=== PATIENT | male | born 1945 | race Caucasian/White ===

== ENCOUNTER 2020-10-25 09:48 | Day surgery (SDC) | payer MEDICARE, OTHER ==
--- NOTE | 2020-10-18 14:27 | HP ---
DATE OF SURGERY: 10/25/2020 HISTORY OF PRESENT ILLNESS: The patient presents with complaints of epigastric pain and history of colon polyps. Denies colon symptoms at this time. Reports epigastric pain is increasing. PAST MEDICAL HISTORY: Coronary artery disease, hyperlipidemia, reflux. PAST SURGICAL HISTORY: Open heart surgery 2004. Pacemaker. FAMILY HISTORY: None reported. SOCIAL HISTORY: Chewing tobacco, limited alcohol. MEDICATIONS: Aspirin, diltiazem, omeprazole, multivitamin, Pravastatin, Xarelto. ALLERGIES: NKDA. REVIEW OF SYSTEMS: CONSTITUTIONAL: Denies fever or chills. CHEST: Denies shortness of breath. HEART: Denies chest pain. ABDOMEN: Reports epigastric pain. Denies nausea, vomiting, diarrhea, constipation or rectal bleeding. INTEGUMENTARY: Negative. PHYSICAL EXAMINATION: GENERAL: No acute distress. CHEST: Nonlabored. No shortness of breath. HEART: Regular rate and rhythm. ABDOMEN: Soft, nontender to palpation. EXTREMITIES: No edema. NEURO: Alert. PSYCH: Appropriate. IMPRESSION: Epigastric pain and screening. History of colon polyps. PLAN: EGD and colonoscopy with Dr. Lele Mendes. As dictated by Viki Art NP.
[~2020-10-25 09:48] MED LIST: Lactated Ringers 1,000 ML IV SCH
[2020-10-25] MEDS ORDERED: Lactated Ringers 1,000 ML IV ONE (10:14)
[2020-10-25] MEDS ORDERED: DIPRIVAN 200 MG/20 ML IV ONE (12:06)
[2020-10-25] MEDS ORDERED: PHENYLEPHRINE HCL ONE (12:18)
[2020-10-25 13:23] VITALS: O2SAT 99
[2020-10-25 13:46] VITALS: BP 132/68; PULSE 74
--- NOTE | 2020-10-26 09:16 | OP ---
SURGERY DATE/TIME: 10/25/2020 1206 PREOPERATIVE DIAGNOSIS: Epigastrium pain, follow up of polyps. POSTOPERATIVE DIAGNOSES: 1) Four small duodenal ulcers with one of them still being open and trying to heal. 2) Grade III/IV heartburn. PROCEDURES: 1) EGD. 2) Colonoscopy complete to cecum. SURGEON: Lele Mendes M.D. ANESTHESIA: MAC. COMPLICATIONS: None. CONDITION: Stable. INDICATION: A patient with epigastric discomfort. DESCRIPTION OF PROCEDURE: Taken to endoscopy. MAC sedation provided. Time out performed. Pharyngoesophageal junction satisfactory. Esophagus satisfactory down to gastroesophageal junction, rim of esophagitis grade III. Fundus with just slight irritation here medical collections representative biopsy. Body satisfactory. Antrum a biopsy for CLOtest. Pylorus satisfactory. Duodenal bulb four ulcers were present, one of this still had 2 mm hole. Second portion of duodenum was normal. On withdrawal no additional lesions were noted. The patient tolerated the procedure satisfactory. IMPRESSION: Significant duodenal ulcer disease. He was placed on Protonix 40 mg p.o. q.h.s. DESCRIPTION OF PROCEDURE: Anal digital examination satisfactory. Prostate satisfactory. Scope advanced to the cecum. Base of the cecum, ileocecal valve was normal. Ascending, hepatic, transverse, splenic, descending, sigmoid, rectum, anus satisfactory. The patient tolerated the procedure satisfactory. IMPRESSION: Normal lower examination.
== END 2020-10-25 13:45 | disposition home or self-care (01) ==
LOC: SDC 09:48
PROVIDERS: ATTEND Surgery
DX: R10.13 Epigastric pain (principal); Z09 Encounter for follow-up examination after completed treatment for conditions other than malignant neoplasm; Z86.010 Personal history of colon polyps; K26.9 Duodenal ulcer, unspecified as acute or chronic, without hemorrhage or perforation
CPT/HCPCS: 99100; J2370; J2704